=== PATIENT | female | born 1955 | race Caucasian/White ===

== ENCOUNTER → 2025-08-02 | Outpatient (CLI) | payer MEDICARE, OTHER, SELFPAY ==
--- NOTE | 2025-08-02 06:46 | MRI_ITS ---
PROCEDURE: MRI/Spine Lumbar (Routine)
== END | disposition home or self-care (01) ==
LOC: MRI 06:45
PROVIDERS: PCP Family Medicine; Referring Provider Student in an Organized Health Care Education/Training Program; Visit Provider Student in an Organized Health Care Education/Training Program
DX: M51.362 Other intervertebral disc degeneration, lumbar region with discogenic back pain and lower extremity pain (principal); M54.16 Radiculopathy, lumbar region
CPT/HCPCS: 72148